=== PATIENT | female | born 1960 | race Caucasian/White ===

== ENCOUNTER 2017-02-26 15:35 | Emergency (ER) | payer BC ==
[~2017-02-26] VITALS: Ht 165.1 cm; Wt 104.3 kg
[~2017-02-26 15:35] MED LIST: ALBUTEROL0.09 MG/A2 IH; ALLEGRA D 12 HO1 TER PO; ALLEGRA60 M1; ALLOPURINOL100 MG PO; BACTRIM DS 8001 TA1 PO; CARAFATE1 GM/10 ML; CARAFATE1 GM/10 ML PO; CEFTIN500 M1 PO; COLACE100 MG PO; DAYPRO600 M1 PO; FLUTICASON0.05 MG/AC; HYOMAX0.125 MG PO; IRON325 M1 PO; MOTRIN 800 MG E4 TAB PO; NEXIUM40 MG PO; PERCOCET 325 MG1 TA2 PO; PREDNISONE20 MG PO; PRILOSEC20 M1 PO; PYRIDIUM100 MG PO; PYRIDIUM200 MG PO; ROBAXIN750 MG PO; ULTRAM50 MG PO; VICODIN ES 7501 TAB PO; VITAMIN D400 IU PO; ZANTAC150 MG PO
[2017-02-26] MEDS ORDERED: OMEPRAZOLE D/R20 MG PO (15:51)
[2017-02-26 15:53] VITALS: BP 142/74
[2017-02-26] MEDS ORDERED: CYCLOBENZAPRINE10 MG PO (18:20)
== END 2017-02-26 18:27 | disposition home or self-care (01) ==
LOC: ED 15:35
DX: S16.1XXA Strain of muscle, fascia and tendon at neck level, initial encounter (principal); S00.83XA Contusion of other part of head, initial encounter; Z88.6 Allergy status to analgesic agent; Z88.8 Allergy status to other drugs, medicaments and biological substances; W22.01XA Walked into wall, initial encounter; Y93.89 Activity, other specified; Y92.9 Unspecified place or not applicable; Y99.9 Unspecified external cause status

== ENCOUNTER → 2017-06-26 | Outpatient (CLI) | payer BC ==
[~2017-06-26] MED LIST changes: +CYCLOBENZAPRINE10 MG PO; +OMEPRAZOLE D/R20 MG PO
== END | disposition home or self-care (01) ==
LOC: US 01:21
DX: K76.89 Other specified diseases of liver (principal)

== ENCOUNTER → 2017-06-27 | Outpatient (CLI) | payer BC | END | disposition home or self-care (01) | LOC: MAMMO 03:57 | DX: Z12.31 Encounter for screening mammogram for malignant neoplasm of breast (principal) ==

== ENCOUNTER → 2017-07-16 | Outpatient (CLI) | payer BC | LOC: US 13:32 | DX: E04.1 Nontoxic single thyroid nodule (principal); D44.0 Neoplasm of uncertain behavior of thyroid gland ==

== ENCOUNTER → 2017-08-03 | Day surgery (SDC) | payer BC ==
[~2017-08-03] VITALS: Ht 165.1 cm; Wt 108.9 kg
--- NOTE | ~2017-08-03 | O ---
[place], [place] OPERATIVE NOTE NAME: NOEL CALDERÓN UNIT #: [id number] ROOM: DOCTOR: ATIF VALADEZ MD BIRTHDATE: [birth year] DOS: 08/03/2017 INDICATIONS: A 57-year-old patient who presented with chief complaint of constipation, nausea despite the fact a sonographic study and HIDA scan has been unremarkable. ALLERGIES: Percocet, Daypro. FAMILY HISTORY: Noncontributory. PAST MEDICAL HISTORY: Hysterectomy. PAST MEDICAL HISTORY: Gastritis, gout. SOCIAL HISTORY: Nonsmoker, nonalcohol consumer. PROCEDURE: Today's procedure part of investigation is panendoscopy and colonoscopy. PREMEDICATION: Versed and Diprivan. SCOPE: Olympus forward-viewing gastroscope Q10 video. REPORT: After putting the patient in left lateral position and application of lubricant to the scope, the scope was introduced. Thereafter, under direct visualization, advanced through the length of esophagus without difficulty. Evidence of gastritis was noticed. Duodenal bulb, second and third part within normal limits. Antral biopsy obtained. GI reflection of the scope reveals cardia to be benign. Air was suctioned out. The patient was extubated, tolerated procedure well. IMPRESSION: Gastritis. PLAN AND DISCUSSION: We are going to proceed with omeprazole 20 mg 1 b.i.d. for 2 weeks to see if she is continuing to have improved symptomatology and beyond that 20 mg every day, antireflux measures, elevation of the head of the bed, avoiding excessive greasy, fried food and otherwise, I am going to proceed with colonoscopy for other symptoms. INDICATIONS: The patient is a 57-year-old who presented with colonic screening, constipation, undergoing investigation. PROCEDURE: Today's procedure part of investigation is colonoscopy plus piecemeal polypectomy. PREMEDICATION: Versed and Diprivan. SCOPE: Olympus folding colonoscope 10L video. REPORT: After putting the patient in left lateral position and application of [place], [place] OPERATIVE NOTE NAME: NOEL CALDERÓN UNIT #: [id number] ROOM: DOCTOR: ATIF VALADEZ MD BIRTHDATE: [birth year] lubricant to the scope, the scope was introduced. Thereafter, under direct visualization, I advanced through the length of colon without difficulty. There is severe angularity of the sigmoid colon and diverticulosis of sigmoid colon; however, this was meticulously maneuvered around and base of cecum explored, appendiceal orifice identified, ileocecal valve was defined. Scope was gradually withdrawn from the cecum after photographic series to sigmoid colon, the sessile polypoid lesion with piecemeal polypectomy removed. Photographic series from diverticulosis and polyp was obtained, the patient was gradually extubated after air was suctioned out, tolerated the procedure well. IMPRESSION: Diverticulosis of sigmoid colon, sessile polypoid lesion in sigmoid colon, angulated sigmoid colon, which would be contributing to mechanical hindrance for ease of bowel movement. PLAN AND DISCUSSION: High fiber diet, avoiding fatty food. Avoiding excessive dairy products and if constipation becomes an issue, then I have provided her with Colace prescription 100 mg 1 q.p.m. to facilitate easy bowel movement. Thank you very much indeed for your kind referral. ATIF VALADEZ MD CM:OPRECORD:OPERATIVE NOTE [id number] MARIANA VALADEZ MD 08/03/17 1435 interface
[2017-08-03 14:02] VITALS: BP 100/62
[2017-08-03 14:15] VITALS: BP 109/54
[2017-08-03 14:32] VITALS: BP 123/54
== END | disposition home or self-care (01) ==
LOC: SDC 07-31 13:15
DX: K29.50 Unspecified chronic gastritis without bleeding (principal); D12.5 Benign neoplasm of sigmoid colon; K57.30 Diverticulosis of large intestine without perforation or abscess without bleeding; Z88.8 Allergy status to other drugs, medicaments and biological substances; Z90.710 Acquired absence of both cervix and uterus; J45.909 Unspecified asthma, uncomplicated; Z98.890 Other specified postprocedural states; Z79.899 Other long term (current) drug therapy

== ENCOUNTER 2017-09-03 06:13 | Emergency (ER) | payer BC ==
[~2017-09-03] VITALS: Ht 165.1 cm; Wt 99.8 kg
[2017-09-03 06:18] VITALS: BP 145/75
[2017-09-03] MEDS ORDERED: METHYLPRED-DP4 MG PO (06:19)
[2017-09-03 06:50] LABS: BASO % 0.5 % (0.0-1.0); EOS # 0.1 10*3/uL (0.0-0.4); EOS % 2.2 % (1.0-4.0); HEMATOCRIT 41.3 % (37.0-47.0); HEMOGLOBIN 13.4 g/dl (12.0-16.0); LYMPH % 16.2 % (27.0-41.0); MEAN CELL VOLUME 87.3 fl (81.0-99.0); MEAN CORPUSCULAR HGB 28.3 pg (27.0-31.0); MEAN CORPUSCULAR HGB CONC 32.4 g/dl (33.0-37.0); MONO # 0.5 10*3/uL (0.1-1.0); NEUT # 4.3 10*3/uL (2.3-7.9); NEUT % 72.8 % (47.0-73.0); PLATELET COUNT AUTOMATED 174 10*3/uL (130-400); RED BLOOD COUNT 4.73 10*6/uL (4.10-5.10); RED CELL DISTRI WIDTH 12.6 % (0-14.5)
[2017-09-03 07:09] LABS: ALBUMIN 3.5 gm/dl (3.1-4.5); ALKALINE PHOSPHATASE 87 U/L (45-117); BUN 16 mg/dl (7-24); CHLORIDE 105 mmol/L (98-107); CREATININE 1.11 mg/dL (0.55-1.02); POTASSIUM 4.1 mmol/L (3.5-5.1); SGOT/AST 15 IU/L (3-35); SGPT/ALT 27 U/L (12-78); SODIUM 142 mmol/L (136-145)
[2017-09-03] MEDS ORDERED: FLONASE ALLERG9.9 ML NAS (07:33)
[2017-09-03] MEDS ORDERED: PREDNISONE50 MG PO (07:33)
== END 2017-09-03 08:45 | disposition home or self-care (01) ==
LOC: ED 06:13
PROVIDERS: Emergency Medicine Emergency Medical Services
DX: J06.9 Acute upper respiratory infection, unspecified (principal); Z88.6 Allergy status to analgesic agent; Z88.8 Allergy status to other drugs, medicaments and biological substances; Z79.899 Other long term (current) drug therapy

== ENCOUNTER 2017-10-05 11:31 | Emergency (ER) | payer BC ==
[~2017-10-05] VITALS: Ht 167.6 cm; Wt 104.3 kg
[~2017-10-05 11:31] MED LIST changes: +FLONASE ALLERG9.9 ML NAS; +METHYLPRED-DP4 MG PO; +PREDNISONE50 MG PO
[2017-10-05 12:06] VITALS: BP 134/62
[2017-10-05 12:43] LABS: BASO % 0.5 % (0.0-1.0); EOS # 0.2 10*3/uL (0.0-0.4); EOS % 2.6 % (1.0-4.0); HEMATOCRIT 41.6 % (37.0-47.0); HEMOGLOBIN 13.3 g/dl (12.0-16.0); LYMPH # 2.1 10*3/uL (1.3-4.4); LYMPH % 24.1 % (27.0-41.0); MEAN CELL VOLUME 87.8 fl (81.0-99.0); MEAN CORPUSCULAR HGB 28.1 pg (27.0-31.0); MEAN PLATELET VOLUME 10.9 fl (9.6-12.3); MONO # 0.6 10*3/uL (0.1-1.0); MONO % 6.8 % (3.0-9.0); NEUT # 5.8 10*3/uL (2.3-7.9); NEUT % 65.7 % (47.0-73.0); PLATELET COUNT AUTOMATED 218 10*3/uL (130-400); RED BLOOD COUNT 4.74 10*6/uL (4.10-5.10); RED CELL DISTRI WIDTH 12.9 % (0-14.5); WHITE BLOOD COUNT 8.8 10*3/uL (4.8-10.8)
[2017-10-05 12:58] LABS: ALBUMIN 3.5 gm/dl (3.1-4.5); ALKALINE PHOSPHATASE 95 U/L (45-117); BUN 12 mg/dl (7-24); CHLORIDE 104 mmol/L (98-107); CREATININE 0.98 mg/dL (0.55-1.02); LIPASE 180 U/L (73-393); POTASSIUM 4.4 mmol/L (3.5-5.1); SGOT/AST 11 IU/L (3-35); SGPT/ALT 26 U/L (12-78); SODIUM 141 mmol/L (136-145)
[2017-10-05 14:01] LABS: BILIRUBIN NEGATIVE (NEGATIVE); BLOOD NEGATIVE (NEGATIVE); CLARITY CLEAR (CLEAR); COLOR YELLOW (YELLOW); GLUCOSE NEGATIVE (NEGATIVE); KETONE NEGATIVE (NEGATIVE); LEUKO ESTERASE 1+ (NEGATIVE); NITRITE NEGATIVE (NEGATIVE); PH 5.5 (5.0-9.0); SPECIFIC GRAVITY 1.015 (1.005-1.030); UROBILINOGEN 0.2 E.U./dl (0.2-1.0)
[2017-10-05 14:13] LABS: BACTERIA 1+; EPITHELIAL CELLS TNTC; RBC 0-2 rbc/hpf (0-2)
[2017-10-05] MEDS ORDERED: PEPCID20 MG PO (15:46)
[2017-10-05] MEDS ORDERED: DICYCLOMINE HCL10 MG PO (15:46)
== END 2017-10-05 15:50 | disposition home or self-care (01) ==
LOC: ED 11:31
PROVIDERS: Physician Assistant
DX: R10.11 Right upper quadrant pain (principal); Z90.710 Acquired absence of both cervix and uterus; Z98.890 Other specified postprocedural states; Z79.899 Other long term (current) drug therapy; Z88.6 Allergy status to analgesic agent; Z88.5 Allergy status to narcotic agent; Z88.8 Allergy status to other drugs, medicaments and biological substances

== ENCOUNTER → 2018-03-08 | Outpatient (CLI) | payer BC ==
[~2018-03-08] MED LIST changes: +DICYCLOMINE HCL10 MG PO; +PEPCID20 MG PO
== END | disposition home or self-care (01) ==
LOC: ORTHO 01:24
DX: M17.11 Unilateral primary osteoarthritis, right knee (principal)

== ENCOUNTER 2019-05-21 08:06 | Emergency (ER) | payer OTHER ==
[~2019-05-21] VITALS: Ht 165.1 cm; Wt 117.9 kg
--- NOTE | ~2019-05-21 | EKG ---
[place], [place] ELECTROCARDIOGRAM REPORT NAME: NOEL CALDERÓN UNIT #: [id number] ROOM: DOCTOR: VINNY DRAFT REPORT BIRTHDATE: [birth year] [facility] Test Date: 2019-05-21 Test Time: 08:55:55 Pat Name: NOEL CALDERÓN Department: Room: [facility] Gender: F [employer]: [id number] : 1960 Requested By: LEYDI PIRES Order Number: [id number] Reading MD: Joseph Ramos MD Measurements Intervals [place] Rate: 80 P: 44 TX: 164 QRS: -2 QRSD: 73 T: 47 QT: 374 QTc: 432 Interpretive Statements Sinus rhythm Low voltage, precordial leads Electronically Signed On 05-26-2019 7:17:53 PDT by Joseph Ramos MD CM:EKGRPT:ELECTROCARDIOGRAM REPORT [id number] LEYDI CASILLAS DRAFT REPORT LEYDI PIRES MD
[2019-05-21 09:02] LABS: BASO # 0.1 10*3/uL (0.0-0.1); BASO % 0.6 % (0.0-1.0); EOS # 0.3 10*3/uL (0.0-0.4); HEMATOCRIT 42.1 % (37.0-47.0); HEMOGLOBIN 13.3 g/dl (12.0-16.0); LYMPH # 1.7 10*3/uL (1.3-4.4); LYMPH % 20.2 % (27.0-41.0); MEAN CELL VOLUME 90.1 fl (81.0-99.0); MEAN CORPUSCULAR HGB 28.5 pg (27.0-31.0); MEAN CORPUSCULAR HGB CONC 31.6 g/dl (33.0-37.0); MONO # 0.5 10*3/uL (0.1-1.0); MONO % 5.5 % (3.0-9.0); NEUT % 70.3 % (47.0-73.0); PLATELET COUNT AUTOMATED 191 10*3/uL (130-400); RED BLOOD COUNT 4.67 10*6/uL (4.10-5.10); WHITE BLOOD COUNT 8.6 10*3/uL (4.8-10.8)
[2019-05-21 09:12] LABS: ACT PARTIAL THROMBO TIME 24.2 SECONDS (20.0-32.1); INTERNATIONAL NORM RATIO 0.9 (2.0-3.5)
[2019-05-21 09:28] LABS: ALBUMIN 3.4 gm/dl (3.1-4.5); ALKALINE PHOSPHATASE 83 U/L (45-117); BUN 11 mg/dl (7-24); CHLORIDE 104 mmol/L (98-107); CREATININE 1.06 mg/dL (0.55-1.02); POTASSIUM 4.4 mmol/L (3.5-5.1); SGOT/AST 12 IU/L (3-35); SGPT/ALT 26 U/L (12-78); SODIUM 140 mmol/L (136-145); TOTAL PROTEIN 7.5 gm/dL (6.4-8.2)
[2019-05-21 09:31] LABS: TROPONIN I < 0.015 ng/ml (<0.045)
[2019-05-21 09:39] VITALS: BP 127/65
[2019-05-21 09:45] LABS: BILIRUBIN NEGATIVE (NEGATIVE); BLOOD NEGATIVE (NEGATIVE); CLARITY SL CLOUDY (CLEAR); COLOR YELLOW (YELLOW); GLUCOSE NEGATIVE (NEGATIVE); KETONE NEGATIVE (NEGATIVE); LEUKO ESTERASE NEGATIVE (NEGATIVE); NITRITE NEGATIVE (NEGATIVE); PH 7.5 (5.0-9.0); SPECIFIC GRAVITY <= 1.005 (1.005-1.030); UROBILINOGEN 0.2 E.U./dl (0.2-1.0)
[2019-05-21 09:53] LABS: BACTERIA TRACE
[2019-05-21] MEDS ORDERED: PREDNISONE50 MG PO (10:01)
== END 2019-05-21 10:16 | disposition home or self-care (01) ==
LOC: ED 08:06
PROVIDERS: Emergency Medicine
DX: J45.901 Unspecified asthma with (acute) exacerbation (principal); Z88.6 Allergy status to analgesic agent; Z88.8 Allergy status to other drugs, medicaments and biological substances; Z79.899 Other long term (current) drug therapy

== ENCOUNTER → 2020-03-26 | Outpatient (CLI) | payer OTHER | END | disposition home or self-care (01) | LOC: US 16:42 | DX: E04.1 Nontoxic single thyroid nodule (principal); E89.0 Postprocedural hypothyroidism ==

== ENCOUNTER 2021-12-18 08:21 | Emergency (ER) | payer OTHER ==
[2021-12-18 08:29] VITALS: BP 127/55
== END 2021-12-18 10:53 | disposition home or self-care (01) ==
LOC: ED 08:21
DX: J45.909 Unspecified asthma, uncomplicated (principal); Z88.6 Allergy status to analgesic agent; Z79.899 Other long term (current) drug therapy; Z90.710 Acquired absence of both cervix and uterus